=== PATIENT | female | born 1995 ===

== ENCOUNTER 2021-10-25 08:48 | Outpatient (CLI) | payer OTHER | END 2021-10-25 10:08 | disposition home or self-care (01) | LOC: PRENATAL 08:48 | PROVIDERS: ATTEND Obstetrics & Gynecology Maternal & Fetal Medicine | DX: O10.011 Pre-existing essential hypertension complicating pregnancy, first trimester (principal); O99.891 Other specified diseases and conditions complicating pregnancy; O36.80X1 Pregnancy with inconclusive fetal viability, fetus 1; Z36.89 Encounter for other specified antenatal screening; Z3A.10 10 weeks gestation of pregnancy ==

== ENCOUNTER 2021-10-28 10:38 | Emergency (ER) | payer OTHER ==
[~2021-10-28] VITALS: Ht 162.6 cm; Wt 108.0 kg
== END 2021-10-28 16:06 | disposition home or self-care (01) ==
LOC: ER 10:38
DX: O20.9 Hemorrhage in early pregnancy, unspecified (principal); Z3A.10 10 weeks gestation of pregnancy

== ENCOUNTER 2021-11-01 20:28 | Day surgery (SDC) | payer OTHER ==
[~2021-11-01] VITALS: Ht 162.6 cm; Wt 108.0 kg
[2021-11-01] MEDS ORDERED: PRENATAL + DHA1 EAC1 (20:47)
== END 2021-11-02 21:10 | disposition home or self-care (01) ==
LOC: ER 20:28 → CIR.AMB 11-02 07:34
PROVIDERS: ATTEND Specialist
DX: O02.1 Missed abortion (principal)